=== PATIENT | male | born 1990 | race African-American/Black ===

== ENCOUNTER 2021-05-07 01:14 | Emergency (ER) | payer OTHER ==
[~2021-05-07] VITALS: Ht 182.9 cm; Wt 86.2 kg
[2021-05-07 01:14] VITALS: BP 121/72
[2021-05-07] MEDS ORDERED: KETOROLAC TROMETHAMINE INJ 30 MG/ML VIAL IM ONE (01:30)
[2021-05-07] MEDS ORDERED: KETOROLAC TROMETHAMINE 15 MG/ML VIAL ONE (01:30)
--- NOTE | 2021-05-07 03:06 | NUR ---
pt ok to be discharged per Law. Patient discharged in custody of [employer] in stable condition. Written and verbal after care instructions given. Patient verbalizes understanding of instruction.Patient is awake and alert to self, day, and place. pt ambulatory with a steady gait
== END 2021-05-07 04:21 ==
LOC: ER 01:18
DX: S00.83XA Contusion of other part of head, initial encounter (principal); M54.5 Low back pain; Y08.89XA Assault by other specified means, initial encounter; Y93.89 Activity, other specified; Y92.89 Other specified places as the place of occurrence of the external cause; Y99.8 Other external cause status
CPT/HCPCS: 70450; 72125; 74176; 96372; 99285; J1885